=== PATIENT | female | born 1970 | race Caucasian/White ===

== ENCOUNTER 2023-05-06 15:41 | Day surgery (SDC) | payer BC ==
[2023-05-06] MEDS ORDERED: Decadron 4 MG INJ IV ONE (15:42)
[2023-05-06] MEDS ORDERED: XYLOCAINE-MPF 1% 5ML SDV IJ ONE (15:42)
[2023-05-06] MEDS ORDERED: Sodium Chloride 0.9(Preservative Free) 10 ML IJ ONE (15:42)
[2023-05-06 16:29] LABS: HCG URINE TEST NEGATIVE (NEGATIVE)
[2023-05-06] MEDS ORDERED: Lactated Ringers 1,000 ML IV ONE (17:04)
--- NOTE | 2023-05-06 20:50 | XRAY ---
Indication: Cervical FREEMAN. Intraoperative fluoroscopy provided for 18 seconds. 2 digital spot image submitted for interpretation demonstrates posterior needle tip projecting posterior to cervical thoracic junction with small amount of contrast injected for needle tip placement. Correlate with intraoperative findings/report.
--- NOTE | 2023-05-06 21:46 | XRAY ---
18 seconds of fluoroscopy was used in surgery for a cervical FREEMAN.
== END 2023-05-06 18:35 | disposition home or self-care (01) ==
LOC: SDC-PAIN 15:41
PROVIDERS: ATTEND Psychiatry & Neurology Pain Medicine
DX: M54.12 Radiculopathy, cervical region (principal); Z79.899 Other long term (current) drug therapy
CPT/HCPCS: 62321; 72040; 77003; 81025; J1100; Q9966